=== PATIENT | male | born 2000 | race Caucasian/White ===

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

== ENCOUNTER 2022-08-09 11:41 | Emergency (ER) | payer OTHER ==
[~2022-08-09] VITALS: Ht 177.8 cm; Wt 70.0 kg
[~2022-08-09 11:41] MED LIST changes: -AMOX-277 PO; +AMOX875T4 PO; +IBUP-1456 PO; -IBUP800T27 PO
[2022-08-09 11:59] VITALS: BP 124/64
[2022-08-09] MEDS ORDERED: CEPH-510 PO (13:22)
[2022-08-09] MEDS ORDERED: HYDR-4902 PO (13:22)
[2022-08-09] MEDS ORDERED: IBUP-1455 PO (13:22)
== END 2022-08-09 13:32 | disposition home or self-care (01) ==
LOC: ER 11:41
DX: L02.31 Cutaneous abscess of buttock (principal); J45.909 Unspecified asthma, uncomplicated; F17.210 Nicotine dependence, cigarettes, uncomplicated; Z79.1 Long term (current) use of non-steroidal anti-inflammatories (NSAID); Z79.2 Long term (current) use of antibiotics; Z79.899 Other long term (current) drug therapy

== ENCOUNTER 2023-02-22 12:30 | Emergency (ER) | payer OTHER ==
[~2023-02-22] VITALS: Ht 200.7 cm; Wt 70.6 kg
[~2023-02-22 12:30] MED LIST changes: +CEPH-510 PO; +HYDR-4902 PO; +IBUP-1455 PO
[2023-02-22 13:33] VITALS: BP 122/48; PULSE 70; RESP 20; TEMP 97.5; O2SAT 100
[2023-02-22] MEDS ORDERED: KETOROLAC TROMETH 30 MG/ML 1ML VIAL IM ONE (13:45)
[2023-02-22] MEDS ORDERED: CIPROFLOXACIN 400MG/200ML 200 ML IV ONE (13:45)
[2023-02-22] MEDS ORDERED: CIPR-173 PO (13:45)
[2023-02-22] MEDS ORDERED: CEPH500T PO (13:45)
[2023-02-22] MEDS ORDERED: IBUP1TAB5 PO (13:45)
== END 2023-02-22 15:46 | disposition home or self-care (01) ==
LOC: ER 12:30
DX: K61.1 Rectal abscess (principal); J45.909 Unspecified asthma, uncomplicated; F17.210 Nicotine dependence, cigarettes, uncomplicated; F12.10 Cannabis abuse, uncomplicated
CPT/HCPCS: 96365; 96372; 99284; J0744; J1885

== ENCOUNTER 2023-11-29 13:25 | Emergency (ER) | payer OTHER ==
[~2023-11-29] VITALS: Ht 175.3 cm; Wt 71.2 kg
[~2023-11-29 13:25] MED LIST changes: +CEPH500T PO; +CIPR-173 PO; +IBUP1TAB5 PO
[2023-11-29 14:11] VITALS: BP 130/74; TEMP 98.8
[2023-11-29 14:12] VITALS: PULSE 104; RESP 16; O2SAT 100
== END 2023-11-29 14:37 | disposition home or self-care (01) ==
LOC: ER 13:25
DX: F12.90 Cannabis use, unspecified, uncomplicated (principal); J45.909 Unspecified asthma, uncomplicated; F17.210 Nicotine dependence, cigarettes, uncomplicated; Z79.899 Other long term (current) drug therapy

== ENCOUNTER 2023-12-05 07:43 | Emergency (ER) | payer OTHER ==
[~2023-12-05] VITALS: Ht 175.3 cm; Wt 65.0 kg
[2023-12-05] MEDS: ASPirin 325 MG TAB PO ONE (08:05)
[2023-12-05 08:31] LABS: Basophils # (auto) 0 10 ^3/uL (0-0.2); Basophils % (auto) 0.8 % (0.0-2.0); Eosinophils # (auto) 0.2 10 ^3/uL (0-0.8); Eosinophils % (auto) 3.3 % (0.0-7.0); Hematocrit 44.5 % (41.0-53.0); Hemoglobin 16.2 g/dL (13.5-17.5); Lymphocytes % (auto) 33.6 % (10.0-50.0); Mean Corpuscular Hemoglobin 32.6 pg (28.0-32.0); Mean Corpuscular Hgb Conc. 36.4 g/dL (32.0-36.0); Mean Corpuscular Volume 89.7 fL (80.0-100.0); Monocytes # (auto) 0.5 10 ^3/uL (0-1.3); Neutrophils # (auto) 3.1 10 ^3/uL (1.6-8.6); Neutrophils % (auto) 53.3 % (37.0-80.0); Nucleated Red Blood Cells % 0.2 %; Platelet Count (auto) 194 10^3/uL (140-450); Red Blood Cells 4.96 10^6/uL (4.5-5.90); Red Cell Distribution Width 13.1 % (11.8-14.3); White Blood Cell 5.8 10^3/uL (4.4-10.8)
[2023-12-05 08:39] LABS: Chloride 106 mmol/L (98-107); Potassium 4.1 mmol/L (3.5-5.1); Sodium 140 mmol/L (136-145)
[2023-12-05 08:40] LABS: Anion Gap 7 (5-15); Calcium 9.4 mg/dL (8.7-10.4); Carbon Dioxide 27 mmol/L (20-30)
[2023-12-05 08:45] LABS: BUN/Creatinine Ratio 13.2 (10.0-20.0); Blood Urea Nitrogen 12 mg/dL (9-23); Glucose 94 mg/dL (74-106)
[2023-12-05 09:26] VITALS: BP 108/67; PULSE 62; RESP 17; TEMP 98; O2SAT 100
== END 2023-12-05 09:28 | disposition home or self-care (01) ==
LOC: ER 07:43
DX: F41.9 Anxiety disorder, unspecified (principal); R07.89 Other chest pain; J45.909 Unspecified asthma, uncomplicated; F17.210 Nicotine dependence, cigarettes, uncomplicated; F12.90 Cannabis use, unspecified, uncomplicated; Z79.899 Other long term (current) drug therapy
CPT/HCPCS: 36415; 80048; 84484; 85025; 85379; 93005

== ENCOUNTER 2023-12-12 07:09 | Inpatient (IN) | payer OTHER ==
[~2023-12-12] VITALS: Ht 175.3 cm; Wt 68.0 kg
[2023-12-12 07:58] LABS: Alanine Aminotransferase 13 U/L (7-40); Albumin 4.4 g/dL (3.2-4.8); Alkaline Phosphatase 70 U/L (46-116); Anion Gap 6 (5-15); Aspartate Aminotransferase 17 U/L (13-40); BUN/Creatinine Ratio 8.7 (10.0-20.0); Blood Urea Nitrogen 9 mg/dL (9-23); Calcium 9.3 mg/dL (8.7-10.4); Carbon Dioxide 27 mmol/L (20-31); Chloride 106 mmol/L (98-107); Glucose 100 mg/dL (74-106); Potassium 3.8 mmol/L (3.5-5.1); Sodium 139 mmol/L (136-145); Total Protein 6.8 g/dL (5.7-8.2)
[2023-12-12 08:07] LABS: Bilirubin, Total 0.5 mg/dL (0.2-1.0)
[2023-12-12 08:22] LABS: Basophils # (auto) 0.1 10 ^3/uL (0-0.2); Basophils % (auto) 1.1 % (0.0-2.0); Eosinophils # (auto) 0.5 10 ^3/uL (0-0.8); Eosinophils % (auto) 6.8 % (0.0-7.0); Hematocrit 44.9 % (41.0-53.0); Hemoglobin 15.9 g/dL (13.5-17.5); Lymphocytes # (auto) 2.4 10 ^3/uL (0.4-5.4); Lymphocytes % (auto) 33.6 % (10.0-50.0); Mean Corpuscular Hemoglobin 32.2 pg (28.0-32.0); Mean Corpuscular Hgb Conc. 35.4 g/dL (32.0-36.0); Mean Corpuscular Volume 90.9 fL (80.0-100.0); Monocytes # (auto) 0.8 10 ^3/uL (0-1.3); Monocytes % (auto) 10.6 % (0.0-12.0); Neutrophils # (auto) 3.4 10 ^3/uL (1.6-8.6); Neutrophils % (auto) 47.9 % (37.0-80.0); Platelet Count (auto) 205 10^3/uL (140-450); Red Blood Cells 4.94 10^6/uL (4.5-5.90); Red Cell Distribution Width 13.2 % (11.8-14.3); White Blood Cell 7.1 10^3/uL (4.4-10.8)
[2023-12-12] MEDS ORDERED: IPRATROPIUM BROM 0.5 MG/2.5ML INH SOL NEB PRN (12:00)
[2023-12-12] MEDS ORDERED: ALBUTEROL SULF 2.5 MG/0.5ML(0.5%) NEB SOLN NEB PRN (12:00)
[2023-12-12] MEDS ORDERED: ONDANSETRON HCL 4 MG/2 ML VIAL IV PRN (12:00)
[2023-12-12] MEDS ORDERED: MORPHINE SULFATE INJ 2 MG/ml SYRG IV PRN (12:00)
[2023-12-12] MEDS ORDERED: DOCUSATE SOD 100 MG CAP PO PRN (12:00)
[2023-12-12] MEDS ORDERED: NITROGLYCERIN 0.4 MG SL TAB SL PRN (12:00)
[2023-12-12] MEDS: SODIUM CHLORIDE 0.9% 1,000 ML IV SCH (14:57)
[2023-12-12 15:30] VITALS: BP 143/82; PULSE 78; RESP 18; TEMP 97.5; O2SAT 98
[2023-12-12 18:44] LABS: Urine Bacteria None Seen /hpf (None Seen)
[2023-12-12 19:06] LABS: Urine Blood Negative /uL (Negative); Urine Clarity Clear (Clear); Urine Color Yellow (Yellow); Urine Mucus FEW (None Seen); Urine Protein, UAD Negative (Negative); Urine Urobilinogen 2 mg/dL (Negative); Urine WBC <1 /hpf (0 - 3)
[2023-12-12 19:55] VITALS: O2SAT 98
[2023-12-12 22:30] VITALS: BP 102/58; PULSE 62; RESP 18; TEMP 98.6; O2SAT 98
[2023-12-13] VITALS (8 sets, daily range): BP systolic 103–107; BP diastolic 51–62; PULSE 18–68; RESP 16–21; TEMP 97.3–98.6; O2SAT 96–98
[2023-12-13 06:55] LABS: Alanine Aminotransferase 10 U/L (7-40); Alkaline Phosphatase 59 U/L (46-116); Anion Gap 6 (5-15); BUN/Creatinine Ratio 13.5 (10.0-20.0); Blood Urea Nitrogen 13 mg/dL (9-23); Calcium 9.4 mg/dL (8.7-10.4); Carbon Dioxide 27 mmol/L (20-31); Chloride 107 mmol/L (98-107); Glucose 95 mg/dL (74-106); Sodium 140 mmol/L (136-145)
[2023-12-13 06:56] LABS: Albumin 4.3 g/dL (3.2-4.8); Aspartate Aminotransferase 8 U/L (13-40)
[2023-12-13 06:57] LABS: Total Protein 6.4 g/dL (5.7-8.2)
[2023-12-13 08:40] LABS: Basophils # (auto) 0.1 10 ^3/uL (0-0.2); Basophils % (auto) 0.8 % (0.0-2.0); Eosinophils # (auto) 0.4 10 ^3/uL (0-0.8); Eosinophils % (auto) 6.1 % (0.0-7.0); Hematocrit 43.7 % (41.0-53.0); Hemoglobin 15.5 g/dL (13.5-17.5); Lymphocytes # (auto) 2.2 10 ^3/uL (0.4-5.4); Lymphocytes % (auto) 30.5 % (10.0-50.0); Mean Corpuscular Hemoglobin 32.3 pg (28.0-32.0); Mean Corpuscular Hgb Conc. 35.5 g/dL (32.0-36.0); Monocytes # (auto) 0.6 10 ^3/uL (0-1.3); Monocytes % (auto) 8.5 % (0.0-12.0); Neutrophils # (auto) 3.9 10 ^3/uL (1.6-8.6); Neutrophils % (auto) 54.1 % (37.0-80.0); Nucleated Red Blood Cells % 0.2 %; Platelet Count (auto) 192 10^3/uL (140-450); Red Cell Distribution Width 13.3 % (11.8-14.3); White Blood Cell 7.1 10^3/uL (4.4-10.8)
[2023-12-13] MEDS: PANTOPRAZOLE 40 MG TAB PO SCH (09:20)
[2023-12-13] MEDS ORDERED: IBUP-1454 PO ×2 (10:45)
== END 2023-12-13 14:50 | disposition home or self-care (01) | DRG 203 ==
LOC: ER 07:09 → TELE 12:04 → TELE-E-ADS 23:54
PROVIDERS: ADMIT Internal Medicine; ATTEND Internal Medicine
DX: M94.0 Chondrocostal junction syndrome [Tietze] (principal); F17.200 Nicotine dependence, unspecified, uncomplicated; F90.9 Attention-deficit hyperactivity disorder, unspecified type; J45.909 Unspecified asthma, uncomplicated; F41.1 Generalized anxiety disorder; Z79.899 Other long term (current) drug therapy
CPT/HCPCS: 36415; 71045; 80053; 81001; 84484; 85025; 85379; 93306; 99291; G0378

== ENCOUNTER 2024-10-07 14:41 | Emergency (ER) | payer OTHER ==
[~2024-10-07] VITALS: Ht 175.3 cm; Wt 74.3 kg
[~2024-10-07 14:41] MED LIST changes: +IBUP-1454 PO
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
[2024-10-07] MEDS ORDERED: NEOM-48 EX (15:20)
[2024-10-07] MEDS: methylPREDNISolone SOD SUCC 125 MG/2 ML VL ONE (15:31)
[2024-10-07] MEDS: NEOMYCIN-BACITRACIN-POLYM 15GM TOP OINT TOP SCH (15:32)
[2024-10-07] MEDS: NEOMYCIN-BACITRACIN-POLYM UNITDOSE PKG TOP OINT TOP ONE (15:36)
[2024-10-07 15:43] VITALS: BP 129/68; PULSE 75; RESP 18; TEMP 98; O2SAT 100
== END 2024-10-07 15:38 | disposition home or self-care (01) ==
LOC: ER 14:41
DX: T20.10XA Burn of first degree of head, face, and neck, unspecified site, initial encounter (principal); J45.909 Unspecified asthma, uncomplicated; F17.210 Nicotine dependence, cigarettes, uncomplicated; Z79.899 Other long term (current) drug therapy; X19.XXXA Contact with other heat and hot substances, initial encounter; Y93.89 Activity, other specified; Y92.89 Other specified places as the place of occurrence of the external cause; Y99.8 Other external cause status
CPT/HCPCS: 16000; 99283; J2919